=== PATIENT | male | born 1980 | race Caucasian/White ===

== ENCOUNTER 2022-04-09 21:49 | Emergency (ER) | payer OTHER ==
[2022-04-09 23:31] LABS: HEMOGLOBIN 14.1 gm/dl (14.0-17.5); RED BLOOD COUNT 4.92 M/UL (4.20-5.50); WHITE BLOOD COUNT 10.6 K/UL (4.5-11.0)
[2022-04-09 23:56] LABS: BUN/CREATININE RATIO 15 (0-10)
[2022-04-10] MEDS ORDERED: KEFLEX CAP 250250 MG PO (02:30)
[2022-04-10] MEDS ORDERED: IBUPROFEN600 MG PO (02:30)
[2022-04-10] MEDS ORDERED: ZOFRAN ODT 4 MG4 MG GT (02:40)
== END 2022-04-10 03:00 | disposition home or self-care (01) ==
LOC: ER1 21:49
PROVIDERS: Family Medicine
DX: R50.9 Fever, unspecified (principal); F17.210 Nicotine dependence, cigarettes, uncomplicated; Z20.822 Contact with and (suspected) exposure to COVID-19
CPT/HCPCS: 0240U; 70450; 71045; 80053; 85025; 96361; 96374; 96375; 99284; J0780; J1200